=== PATIENT | female | born 1950 | race Caucasian/White ===

== ENCOUNTER 2021-06-19 06:18 | Day surgery (SDC) | payer MEDICARE, OTHER ==
[2021-06-19] MEDS ORDERED: NA CHLORIDE 0.9% 1,000 ML ONE (06:39)
[2021-06-19] MEDS ORDERED: LIDOCAINE 2% MPF 5 ML VIAL ONE (07:10)
[2021-06-19] MEDS ORDERED: propofoL 200 MG/20 ML VIAL IV ONE (07:10)
[2021-06-19] MEDS ORDERED: GLYCOPYRROLATE 0.2 MG/ML SYR ONE (07:16)
[2021-06-19 08:30] VITALS: O2SAT 98
[2021-06-19 09:06] VITALS: BP 123/86; TEMP 97.2
== END 2021-06-19 08:51 | disposition home or self-care (01) ==
LOC: OR 06:18
PROVIDERS: ATTEND Surgery
PROC: 0DBK8ZX Excision of Ascending Colon, Via Natural or Artificial Opening Endoscopic, Diagnostic (ICD-10-PCS; principal; 2021-06-19 07:30)
DX: Z86.010 Personal history of colon polyps (principal); E11.9 Type 2 diabetes mellitus without complications; I10 Essential (primary) hypertension; K21.9 Gastro-esophageal reflux disease without esophagitis; E78.00 Pure hypercholesterolemia, unspecified; D12.2 Benign neoplasm of ascending colon; Z20.822 Contact with and (suspected) exposure to COVID-19
CPT/HCPCS: 82947; 88305; 45380; U0003; J2704; J7030